=== PATIENT | female | born 1960 | race Caucasian/White ===

== ENCOUNTER 2017-03-22 13:24 | Emergency (ER) | payer SELFPAY ==
[2017-03-22] MEDS ORDERED: hydrOXYzine 25 MG TAB ONE (13:50)
[2017-03-22] MEDS ORDERED: methylPREDNISolone Sod Succ/PF 125 MG/2 ML VIAL ONE (13:50)
== END 2017-03-22 14:03 | disposition home or self-care (01) ==
LOC: BURERS 13:24
DX: F41.9 Anxiety disorder, unspecified (principal); L50.9 Urticaria, unspecified; E03.9 Hypothyroidism, unspecified; F32.9 Major depressive disorder, single episode, unspecified; F17.210 Nicotine dependence, cigarettes, uncomplicated
CPT/HCPCS: 96372; J2930